=== PATIENT | male | born 1980 | race African-American/Black ===

== ENCOUNTER 2019-10-03 21:39 | Emergency (ER) | payer MEDICAID, SELFPAY ==
[2019-10-03 21:40] VITALS: BP 140/83; PULSE 85; RESP 18; TEMP 36.9; O2SAT 97; BMI 32.5
[2019-10-03 22:11] LABS: Bedside Glucose 343 mg/dL (70-110)
--- NOTE | 2019-10-03 22:17 | EKG12_ITS ---
Test Reason : DIZZY/NAUSEA Blood Pressure : / mmHG Vent. Rate : 072 BPM Atrial Rate : 072 BPM P-R Int : 148 ms QRS Dur : 084 ms QT Int : 368 ms P-R-T Axes : 043 077 040 degrees QTc Int : 402 ms Normal sinus rhythm Nonspecific ST abnormality Abnormal ECG Confirmed by WENDI AGRAWAL ([id number]), map editor THUY SHANNON ([id number]) on 10/10/2019 12:08:37 PM Referred By: JEFF Confirmed By:WENDI AGRAWAL
--- NOTE | 2019-10-03 22:21 | ED.RN ---
NO OLD EKGS IN MUSE
[2019-10-03 22:32] LABS: Absolute Lymphocyte Count 3.58 X10^3/uL (0.83-4.51); Absolute Neutrophil Count 3.5 X10^3/uL (2.0-7.7); Basophil# 0.03 X10^3/uL; Basophil% 0.4 % (0-1); Eosinophil# 0.31 X10^3/uL; Eosinophils% 3.9 % (0-5); Hematocrit 38.7 % (40-54); Lymphocyte # 3.58 X10^3/ul (4.0); Mean Corp Hgb Conc 36.2 g/dL (32-36); Mean Corpuscular Hgb 30.5 pg (27.0-32.0); Mean Corpuscular Volume 84.3 fL (80-94); Monocyte# 0.54 X10^3/uL; Monocyte% 6.8 % (0-10); NRBC Flagged by Analyzer 0 % (0-5); Neutrophil # 3.47 X10^3/uL (2.7-7.7); Neutrophil % 43.6 % (47-70); Platelet Count 269 K/mm3 (150-450); RBC Distribution Width CV 12.6 % (11.6-14.6); RBC Distribution Width SD 38.3 fl (35.1-43.9); Red Blood Count 4.59 M/mm3 (4.6-6.2)
[2019-10-03 22:51] LABS: Anion Gap 5 (5-15); BUN 16 mg/dL (7-18); Calcium,Total 8.6 mg/dL (8.5-10.1); Chloride 103 mmol/L (98-107); Creatinine, Serum 1.07 mg/dL (0.70-1.30); EST Glomerular Filtration Rate 82 mL/min (>60); Est Glom Filt Rate - Afr Amer 99 mL/min (>60); Estimated Creatinine Clearance 102.74 ml/min; Glucose 356 mg/dL (74-106); Potassium 3.7 mmol/L (3.5-5.1); Sodium Level 136 mmol/L (136-145)
--- NOTE | 2019-10-03 23:00 | RAD_ITS ---
STUDY: X-RAY CHEST REASON FOR EXAM: Male, 38 years old. Dizziness for one day. Shortness of breath and nausea yesterday. TECHNIQUE: Single AP portable view of the chest. COMPARISON: None. FINDINGS: The lungs are clear and expanded. There is no demonstrated pleural abnormality. Normal size heart. Normal mediastinum and raúl. Normal visualized pulmonary arteries. Normal visualized aortic arch and descending thoracic aorta. Normal visualized thoracic spine. Normal visualized ribs, clavicles, and shoulders. There is no demonstrated abnormality of the visualized soft tissue structures of the upper abdomen. RAD/Chest 1 View (Portable) IMPRESSION: No acute cardiopulmonary disease. Electronically Signed: Neal Charlton DO at 23:20 EDT Tel [phone], Service support ,
[2019-10-03 23:16] LABS: Bacteria 0 SEEN /hpf (None Seen); Mucous, Urine 0 SEEN /hpf (<or=2+); Red Blood Cells-Urine 0 SEEN /hpf (0-5); Squamous Epithelial Cells - UA 0 SEEN /hpf (0-5); White Blood Cells 0 SEEN /hpf (0-5)
[2019-10-03 23:18] LABS: Color, Urine Yellow (Yellow); Glucose, Dipstick 1000 mg/dl (Normal); Ketone-Dipstick 5 mg/dl (Negative); Leukocyte Esterase-Dipstick Negative /ul (Negative); Nitrite-Dipstick Negative (Negative); Occult Blood-Urine Negative /ul (Negative); Protein-Dipstick Negative (Negative); Specific Gravity, Urine 1.015 (1.002-1.030); Urine Bilirubin Dipstick Negative (Negative); Urine Clarity Clear (Clear); Urine Urobilinogen Normal (Normal); Urine pH 6.5 (5.0 - 8.0)
[2019-10-03] MEDS: 0.9% Normal Saline 1,000 ML 999 ML IV (23:40)
--- NOTE | 2019-10-03 23:42 | ED.VIS.GEN ---
History of Present Illness Chief Complaint: Dizziness Informant: Patient Onset: Yesterday Context: Gradual Onset Timing: Continuous Narrative: Patient is a 38-year-old male with history of diabetes mellitus presenting with dizziness. Patient states that he started feeling a little bit last night is been persistent today. He states it feels like a lightheaded/spinning versus a swimming sensation. He saw his primary care physician for the symptoms today who thought he might have hayfever or allergies. He was prescribed Zyrtec and Flonase. He states he initially felt better but then his symptoms returned so decided come to the emergency room. He notes he has had associated nasal congestion and a mild sore throat. He denies any cough. His he has some mild shortness of breath but she has a hard time describing. He denies associated chest pain. He had some nausea this morning and while at work at [employer] but attributes that to it being hot. He denies any change in his bowel habits. He states he is currently off of his diabetic medications because of insurance issues. He is also started a ketogenic diet. He is on day 3. Patient has any other complaints at this time. Past Medical History - Allergies and Home Meds Allergies/Adverse Reactions: Allergies metformin Adverse Reaction (Verified 10/03/19 22:10) Vomiting POWDER ON LATEX Allergy (Uncoded 10/03/19 21:43) Swelling Past Medical History: - - Diabetes mellitus Surgical History: noncontributory Smoking Status: Light Smoker (<10/day) Review of Systems General: Reports: - - Dizziness. Denies: Chills, Fever, Sweats Eyes: Denies: Visual changes - bilaterally, Diplopia ENT: Reports: Sore throat, - - Nasal congestion. Denies: Rhinorrhea Cardiovascular: Denies: Chest pain, Palpitations Respiratory: Reports: Dyspnea. Denies: Cough, Dyspnea on exertion Gastrointestinal: Reports: Nausea. Denies: Abdominal pain, Vomiting, Diarrhea, Melena, Hematochezia Genitourinary: Denies: Dysuria, Hematuria, Frequency Musculoskeletal: Denies: Back pain, Extremity Pain Skin: Denies: Rash, Wounds Neurological: Denies: Headache, Weakness, Numbness Physical Exam Vital Signs/Narrative: Vital Signs Temp Pulse Resp BP Pulse Ox 10/03/19 21:40 98.4 F 85 18 140/83 H 97 Inital Vital Signs reviewed: Yes General: Well nourished, Well developed, Obese, No Acute Distress Head: Normocephalic, Atraumatic Eyes: Perrl, EOMI, - - No nystagmus ENT: Moist mucous membranes, No rhinorrhea, TM's clear. Negative for: Nasal congestion, Sinus tenderness Neck: Supple, Nontender Cardiovascular: Regular rate, Regular rhythm, No murmurs Respiratory: No distress, CTA bilaterally, Chest nontender Abdomen: Soft, Nontender, Nondistended, Normal bowel sounds. Negative for: Guarding, Rebound tenderness Back: Nontender, Normal Inspection. Negative for: CVA tenderness Extremities: Nontender, No edema Skin: Normal color, No rash Neurological: Alert, Oriented x3, Cranial nerves II-XII grossly intact, Normal Strength, Normal Sensation Psychological: Normal affect, Normal Mood Diagnostic/Tx/Re-eval Chest X-Ray - ED: 1 View, Read by ED Physician, Read by Radiologist, No Acute Disease - Rhythm Strip Rhythm Strip: Sinus Rhythm Rate: 72 Ectopy: None - EKG Initial EKG Interpretation: Sinus Rhythm, - - Normal sinus rhythm at a rate of 72 Normal intervals Normal axis Nonspecific T wave inversion and lead III - Medical Decision Making Patient is evaluated for lightheadedness. He has been off of his diabetic medications because is not approved by the insurance has not been able to afford it. Patient is hyperglycemic but is not have any elevated anion gap and I do not suspect HH NK. He is given a liter of fluid. Patient was diagnosed with hayfever today by his PCP. This does fit his nasal congestion and clinical picture. Cardiopulmonary work-up is largely negative. Patient does have some mild ketones in his urine which could be associated with his diet as he started a ketogenic diet but could also be associated dehydration. Patient is instructed to follow with his primary care doctor later this week. He is otherwise hemodynamically stable and I feel he is stable for outpatient follow-up. ED Disposition - Plan for ED Patient: Disposition: Home or Assisted Living Diagnosis: Dizziness, Hyperglycemia due to diabetes mellitus, Dehydration Instructions: ED Diabetic Hyperglycemia, ED Dehydration Adult Additional Instructions: Please continue to follow-up with your primary care doctor. Drink plenty of fluids.
== END 2019-10-04 00:35 | disposition home or self-care (01) ==
PROVIDERS: Emergency Provider Emergency Medicine
DX: E86.0 Dehydration (principal); E11.65 Type 2 diabetes mellitus with hyperglycemia
CPT/HCPCS: 71045; 80048; 81001; 82962; 84484; 85025; 93005; 96360; 99283; J7030; A4216

== ENCOUNTER 2020-02-27 22:27 | Emergency (ER) | payer MEDICAID, SELFPAY ==
[2020-02-27 22:28] VITALS: BP 126/89; PULSE 82; RESP 18; TEMP 36.5; O2SAT 99; BMI 31.1
--- NOTE | 2020-02-27 22:59 | ED.VIS.GEN ---
History of Present Illness Chief Complaint: Nausea/Vomiting Informant: Patient Onset: Today Context: Gradual Onset Timing: Intermittent Current Severity: Moderate Maximum Severity: Moderate Narrative: Patient is a 39-year-old male was otherwise healthy the presents to the emergency department dental pain, nausea, vomiting. Patient states he had a dental extraction about a week ago. States he been doing pretty well with his pain. He woke this morning with increasing pain and then vomited. He states he felt like the vomit was making it worse. He is thrown up 3 times. He states he had to miss work. He has been taking ibuprofen every 4 or 6 hours with little improvement. He denies any fevers or chills. He denies any trouble speaking or swallowing. Prior similar symptoms: No Recent Illness/Hospitalization: Yes Past Medical History - Allergies and Home Meds Allergies/Adverse Reactions: Allergies metformin Adverse Reaction (Verified 10/03/19 22:10) Vomiting POWDER ON LATEX Allergy (Uncoded 10/03/19 21:43) Swelling Primary Care Physician: Donnie Ribeiro,Out of [Primary Care Provider] - Prior records reviewed: Yes Past Medical History: None Surgical History: noncontributory Smoking Status: Never smoker Review of Systems General: Denies: Chills, Fever, Sweats Eyes: Denies: Visual changes - bilaterally, Diplopia ENT: Denies: Rhinorrhea, Sore throat Cardiovascular: Denies: Chest pain, Palpitations Respiratory: Denies: Dyspnea, Cough, Dyspnea on exertion Gastrointestinal: Reports: Nausea, Vomiting. Denies: Abdominal pain, Diarrhea, Melena, Hematochezia Genitourinary: Denies: Dysuria, Hematuria, Frequency Musculoskeletal: Denies: Back pain, Extremity Pain Skin: Denies: Rash, Wounds Neurological: Denies: Headache, Weakness, Numbness Physical Exam Vital Signs/Narrative: Vital Signs Temp Pulse Resp BP Pulse Ox 02/27/20 22:28 97.7 F L 82 18 126/89 H 99 Inital Vital Signs reviewed: Yes General: Well nourished, Well developed, No Acute Distress Head: Normocephalic, Atraumatic Eyes: Perrl, EOMI ENT: Moist mucous membranes, No rhinorrhea, - - Examination of the oromucosa is relatively unremarkable. He does have extraction site of tooth #11. There is no dry socket or active bleeding. There is no focal abscess. Neck: Supple, Nontender Cardiovascular: Regular rate, Regular rhythm, No murmurs Respiratory: No distress, CTA bilaterally, Chest nontender Abdomen: Soft, Nontender, Nondistended, Normal bowel sounds Back: Nontender, Normal Inspection Extremities: Nontender, No edema Skin: Normal color, No rash Neurological: Alert, Oriented x3, Cranial nerves II-XII grossly intact, Normal Strength, Normal Sensation Psychological: Normal affect, Normal Mood Diagnostic/Tx/Re-eval - Medical Decision Making Patient presents with pain and nausea status post dental extraction. His postoperative site is well-appearing. He has no trismus or stridor. There is no evidence of Koffi angina. There is no evidence of dry socket. Patient be treated with a short course of analgesics and antiemetics. He will follow-up with his dentist. Impression Post dental removal pain ED Disposition - Plan for ED Patient: Instructions: ED Dental Pain Prescriptions: Hydrocodone Bitart/Apap 5-325 [[place] 5MG-325MG] 1 tab PO Q6H PRN PRN 3 Days #10 tab PRN Reason: Pain Prescription Printed Ondansetron [Zofran Odt] 4 mg PO Q8H PRN PRN #10 tab PRN Reason: Nausea Prescription Printed Referrals: [facility] Doctor,Out of [Primary Care Provider] -
[2020-02-27] MEDS: Ondansetron ODT 4 MG Tablet 8 MG PO (23:34)
[2020-02-27] MEDS: HYDROcodone Bitartrate/Apap 5/325 Tablet PO (23:34)
[2020-02-27 23:37] VITALS: BP 122/60; PULSE 85; RESP 18; O2SAT 96
== END 2020-02-27 23:38 | disposition home or self-care (01) ==
LOC: ED 23:31
PROVIDERS: Emergency Provider Emergency Medicine
DX: K08.89 Other specified disorders of teeth and supporting structures (principal); Z98.818 Other dental procedure status; R11.2 Nausea with vomiting, unspecified
CPT/HCPCS: 99283

== ENCOUNTER 2021-07-28 17:43 | Emergency (ER) | payer MEDICAID, SELFPAY ==
[2021-07-28 17:44] VITALS: BP 159/104; PULSE 89; RESP 18; TEMP 36.4; O2SAT 100; BMI 31.1
--- NOTE | 2021-07-28 18:20 | ED.VIS.BACK ---
HPI History of Present Illness Chief Complaint: Back Detail of Chief Complaint: Back pain that started 6 days ago Informant: patient Onset/Context/Timing Current Severity: 07/23 Narrative Narrative: Patient presents to the emergency department complaint of back pain that started 6 days ago. Patient states that initially he was at work lifting some semirims when he felt some pain in his back and some tingling to the right side of his flank. Patient states he went to bed and was a little bit sore when he woke up the next morning but overall felt much better. Patient states that he then helped his father with a trampoline that he lifted up weighed about 200 pounds and when he lifted the trampoline he fell backwards onto the grass and reinjured his back. Patient continues to complain with certain movements of pain radiating down his right leg down his buttock to about mid thigh. On the left side he intermittently has some pain and tingling to the left heel. He denies weakness in extremities. He denies any change in bowel or bladder function. Patient states that he had similar injury and illness at the age of 9. Prior similar symptoms: Yes PFSH PFSH Medical History no medical history Home Medications cyclobenzaprine 10 mg PO TID PRN #20 tablet 07/28/21 [Rx Last Taken Unknown] hydrocodone-acetaminophen 1 tab PO Q4H PRN PRN 2 Days #15 tablet 07/28/21 [Rx Last Taken Unknown] naproxen 500 mg PO BID #14 tab 07/28/21 [Rx Last Taken Unknown] Allergy/AdvReac Type Severity Reaction Status Date / Time metformin AdvReac Vomiting Verified 07/28/21 17:45 POWDER ON LATEX Allergy Swelling Uncoded 07/28/21 17:45 Surgical History no surgical history Social History Smoking Status: Former smoker ROS ROS ED Constitutional Constitutional ED: Reports systems reviewed and no addt'l complaints, except as documented; Denies body ache(s), change in weight or chills Eyes Eyes: Denies acute decrease in peripheral vision, change in vision, double vision or loss of vision ENT ENT ED: Reports none; Denies ear pain, lip swelling, loss taste/smell, neck pain, otalgia or sore throat Cardiovascular Cardiovascular: Reports none; Denies abdominal pain, chest pain with activity, leg edema, lightheadedness, palpitations, rapid heart rate or syncope Respiratory/Chest Respiratory/Chest: Reports none; Denies change in mental status, dry cough, dyspnea, hemoptysis, shortness of breath at rest or shortness of breath with exertion Gastrointestinal Gastrointestinal: Reports none; Denies abdominal pain, change in stool character, diarrhea, hematemesis, hematochezia, melena, rectal bleeding or vomiting Genitourinary Genitourinary ED: Reports none; Denies abdominal discomfort, anuria, dysuria, genital pain or polyuria Musculoskeletal Musculoskeletal: Reports none and back pain; Denies arthralgias, difficulty walking, extremity pain, muscle weakness or myalgias Integumentary Reports none; Denies abscess or rash Neurologic Neurologic: Reports none; Denies abnormal gait, confusion, focal weakness, frequent falls, headache(s), loss of vision, numbness, paresthesias, radicular pain, vertigo or weakness Psychiatric Psychiatric: Reports systems reviewed and no addt'l complaints, except as documented and none; Denies behavioral changes, confusion, difficulty concentrating, hallucinations, suicidal ideation, tactile hallucinations or visual hallucinations Endocrine Endocrinology: Denies none, cold intolerance, excessive sweating, fatigue or heat intolerance Hematologic/Lymphatic Hematologic/Lymphatic: Reports none; Denies anemia, easy bleeding or easy bruising Allergic/Immunologic Allergic/Immunologic ED: Denies as per HPI, none, lip swelling, mouth swelling, throat swelling, tongue swelling or hives EXAM Physical Exam Const Vital Signs: 07/28/21 17:44 Temperature 97.5 F L Temperature Source Temporal Pulse Rate 89 Respiratory Rate 18 Blood Pressure 159/104 H Blood Pressure Mean 122 Pulse Ox 100 Oxygen Delivery Method Room Air Positive well nourished and well developed General Appearance ED: well developed and NAD HEENT Reports TM's clear and moist mucous membranes normocephalic and atraumatic; Negative for trauma or tenderness Tympanic Membrane ED: Yes TM's clear Eyes PERRL and EOMs intact bilaterally General Eye ED: Negative for pale conjunctiva or scleral icterus Neck no lymphadenopathy, supple and no JVD General: Negative for tenderness Chest Wall inspection of chest normal and palpation of chest normal Chest: Negative for tenderness Resp normal respiratory effort and clear to auscultation bilaterally Effort and Inspection: Negative for respiratory distress or pain with movement Auscultation: Negative for rhonchi, wheezes or diminished lung sounds Cardio regular rate, regular rhythm, S1 normal heart sound, S2 normal heart sound and no murmurs Peripheral Pulses: pulses 2+ throughout GI normal to inspection, nondistended, normoactive bowel sounds, soft to palpation, non-tender, non-distended and no masses Back/Spine no CVA tenderness and no thoracic nor lumbar tenderness Back/Spine Narrative: Evaluation of his back reveals no evidence of trauma. There is no significant tenderness over thoracic or lumbar spine. He is got some mild tenderness over bilateral paraspinal musculature. He has negative straight leg raises bilaterally. He has normal deep tendon reflexes are plus 2 out of 4 bilaterally at the patella and Achilles. Patient has normal 5 extension bilaterally. He is neurovascularly intact. Extremity normal to inspection General Extremety ED: Negative for edema General Extremity: Negative for edema Neuro oriented x3, CN's II-XII intact bilaterally, no sensory deficits noted and gait normal Sensorium / Orientation: awake, alert, oriented to person, oriented to place and oriented to time Motor Exam: strength 5/5 throughout and strength abnormal Psych mental status grossly normal Skin no rashes or lesions noted and no wounds MDM MDM MDM Narrative Medical decision making narrative: I had a long discussion with patient that I did not feel x-rays were indicated as he is not had any significant trauma. Patient is in agreement. I suspect he may have muscular strain versus lumbar radiculopathy. Patient will be started on Naprosyn, Flexeril, and [place] for pain. He will be given referral to back specialist for follow-up. Patient advised to return if signs of cauda equina such as weakness in the extremities, loss of function, saddle anesthesia, change in bowel or bladder function, or condition should worsen anyway. Discharge Plan Triage Chief Complaint: Back ED Provider: Lesly Turner Dx/Rx/DC Orders Clinical Impression: Back pain, Acute lumbar radiculopathy Instructions: ED Back Pain (Acute or Chronic), ED Sciatica Prescriptions: New cyclobenzaprine [cyclobenzaprine] 10 MG tablet 10 mg PO TID PRN (Reason: Muscle Spasm) Qty: 20 RF: 0 hydrocodone-acetaminophen [hydrocodone-acetaminophen] 1 TABLET tablet 1 tab PO Q4H PRN PRN (Reason: Pain) 2 Days Qty: 15 RF: 0 naproxen 500 MG tablet 500 mg PO BID Qty: 14 RF: 0 Primary Care Provider: Care Physician,No Primary Referrals: Serafin Weber DO [STAFF PHYSICIAN] - 3-5 Days Care Physician,No Primary [Primary Care Provider] -
== END 2021-07-28 18:33 | disposition home or self-care (01) ==
PROVIDERS: Emergency Provider Emergency Medicine; Visit Provider Emergency Medicine
DX: M54.16 Radiculopathy, lumbar region (principal); Z87.891 Personal history of nicotine dependence; X50.0XXA Overexertion from strenuous movement or load, initial encounter
CPT/HCPCS: 99282

== ENCOUNTER 2023-09-06 14:12 | Emergency (ER) | payer MEDICAID, SELFPAY ==
[2023-09-06 14:12] VITALS: BP 128/87; PULSE 87; RESP 16; TEMP 36.7; O2SAT 97; BMI 31.8
== END 2023-09-06 15:58 | disposition left against medical advice (07) ==
LOC: ED 15:58
DX: R11.2 Nausea with vomiting, unspecified (principal)